=== PATIENT | female | born 1930 ===

== ENCOUNTER 2017-08-27 10:32 | Outpatient (CLI) | payer OTHER | END 2017-08-27 10:34 | disposition home or self-care (01) | LOC: LAB 10:32 | DX: E11.8 Type 2 diabetes mellitus with unspecified complications (principal); E78.2 Mixed hyperlipidemia; I10 Essential (primary) hypertension; E55.9 Vitamin D deficiency, unspecified; K62.5 Hemorrhage of anus and rectum; E21.0 Primary hyperparathyroidism; E03.8 Other specified hypothyroidism ==

== ENCOUNTER 2017-08-27 13:38 | Outpatient (CLI) | payer OTHER | END 2017-08-27 13:54 | disposition home or self-care (01) | LOC: RAD 13:38 | DX: Z12.31 Encounter for screening mammogram for malignant neoplasm of breast (principal); Z87.898 Personal history of other specified conditions; N63.10 Unspecified lump in the right breast, unspecified quadrant; N63.20 Unspecified lump in the left breast, unspecified quadrant; E03.8 Other specified hypothyroidism; J45.991 Cough variant asthma; E04.1 Nontoxic single thyroid nodule ==